=== PATIENT | male | born 1995 | race Caucasian/White ===

== ENCOUNTER 2017-12-31 18:14 | Emergency (ER) | payer SELFPAY ==
[~2017-12-31] VITALS: Ht 177.8 cm; Wt 140.9 kg
[~2017-12-31 18:14] MED LIST: PROZAC10 MG OR; [UNRECOGNIZED DRUG - OTHER] OR
[2017-12-31 19:49] VITALS: BP 143/71
== END 2017-12-31 19:58 | disposition home or self-care (01) | DRG 204 ==
LOC: ED 18:14
DX: R06.4 Hyperventilation (principal); R06.02 Shortness of breath; F41.0 Panic disorder [episodic paroxysmal anxiety]

== ENCOUNTER 2019-07-02 | Emergency (ER) | payer SELFPAY ==
[2019-07-02] MEDS ORDERED: CODEINE/GUAIFEN1 SOL PO (01:23)
[2019-07-02] MEDS ORDERED: AMOXICILLIN500 MG PO (01:23)
== END 2019-07-02 01:43 | disposition home or self-care (01) | DRG 153 ==
DX: J06.9 Acute upper respiratory infection, unspecified (principal); F17.210 Nicotine dependence, cigarettes, uncomplicated

== ENCOUNTER 2022-02-19 16:40 | Emergency (ER) | payer BC ==
[~2022-02-19] VITALS: Ht 190.5 cm; Wt 140.6 kg
[~2022-02-19 16:40] MED LIST changes: +AMOXICILLIN500 MG PO; +CODEINE/GUAIFEN1 SOL PO
[2022-02-19 16:54] VITALS: BP 137/79
[2022-02-19 17:01] VITALS: BP 117/46
[2022-02-19 17:19] VITALS: BP 121/69
[2022-02-19 17:31] VITALS: BP 126/70
[2022-02-19 17:31] LABS: MEAN CORPUSCULAR HGB 31.4 pG CALC (26.0-32.0); MEAN CORPUSCULAR HGB CONC 35.9 g/dL CAL (32.0-36.0); NEUT# 4.95 thou/uL (1.82-7.42); RED BLOOD COUNT 5.16 mill/uL (4.70-6.10); RED CELL DISTRI WIDTH 12.1 % (11.5-15.5)
[2022-02-19 17:32] LABS: HEMATOCRIT 45.1 % (39.0-50.0); HEMOGLOBIN 16.2 g/dl (14.0-18.0); MEAN CELL VOLUME 87.4 fL CALC (80.0-100.0)
[2022-02-19 17:47] LABS: ALBUMIN 4.8 g/dL (3.2-5.0); ALKALINE PHOSPHATASE 61 u/l (38-126); BILIRUBIN, TOTAL 0.7 mg/dL (0.0-1.4); BUN 14 mg/dL (9-20); BUN/CREATININE RATIO 13 (12-20 (CALC)); CARBON DIOXIDE 26 mmol/l (22-30); CHLORIDE 102 mmol/l (95-108); CREATININE 1.1 mg/dL (0.7-1.3); GFR FOR AFR.AMER. > 60 ML/MIN (>=60 (CALC)); GFR OTHER RACES > 60 ML/MIN (>=60 (CALC)); LIPASE 53 u/l (23-300); POTASSIUM 3.7 mmol/l (3.5-5.1); SGOT/AST 30 u/l (17-59); TOTAL PROTEIN 7.4 g/dL (6.3-8.2)
[2022-02-19 17:49] LABS: ANION GAP 14 (6-22 (CALC)); SODIUM 138 mmol/l (137-146)
[2022-02-19 18:01] VITALS: BP 116/63
[2022-02-19] MEDS ORDERED: CYCLOBENZAPRINE10 MG PO (19:37)
[2022-02-19] MEDS ORDERED: NAPROXEN500 MG PO (19:37)
[2022-02-19 19:52] VITALS: BP 116/63
== END 2022-02-19 20:04 | disposition home or self-care (01) | DRG 563 ==
LOC: ED 16:40
PROVIDERS: Nurse Practitioner
DX: S46.912A Strain of unspecified muscle, fascia and tendon at shoulder and upper arm level, left arm, initial encounter (principal); S00.81XA Abrasion of other part of head, initial encounter; V86.55XA Driver of 3- or 4- wheeled all-terrain vehicle (ATV) injured in nontraffic accident, initial encounter; Y93.I9 Activity, other involving external motion; Y92.821 Forest as the place of occurrence of the external cause; F17.200 Nicotine dependence, unspecified, uncomplicated
CPT/HCPCS: Q9967